=== PATIENT | male | born 2000 | race African-American/Black ===

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

== ENCOUNTER 2024-02-04 13:00 | Emergency (ER) | payer MEDICAID ==
[~2024-02-04] VITALS: Ht 172.7 cm; Wt 53.0 kg
[2024-02-04 13:02] VITALS: O2SAT 99
[2024-02-04 13:09] VITALS: TEMP 98; O2SAT 100
[2024-02-04] MEDS ORDERED: ONDANSETRON HCL 4MG/2ML INJ IV ONE (14:00)
[2024-02-04] MEDS ORDERED: KETOROLAC 30MG/ML VIAL IV ONE (14:00)
[2024-02-04 14:02] LABS: HEMATOCRIT. 48.2 % (42.0-52.0); HEMOGLOBIN. 16.1 g/dL (14.0-18.0); MEAN CORPUSCULAR HEMOGLOBIN 31.6 pg (28.0-32.0); MEAN CORPUSCULAR HGB CONC 33.3 g/dL (31.0-37.0); MEAN CORPUSCULAR VOLUME 94.7 fL (80.0-94.0); MEAN PLATELET VOLUME 8.6 fl (7.4-10.4); PLATELET 294 x1000/uL (130-400); RED BLOOD CELL COUNT 5.09 mill/uL (4.7-6.1); RED CELL DISTRIBUTION WIDTH 15.5 % (11.6-14.6); WHITE BLOOD COUNT 13.1 x1000/uL (4.5-11.0)
[2024-02-04 14:11] LABS: CHLORIDE 106 mEq/L (98-107); POTASSIUM 4.8 mEq/L (3.5-5.1); SODIUM 140 mEq/L (136-145)
[2024-02-04 14:12] LABS: CALCIUM 11.5 mg/dL (8.7-10.4); CARBON DIOXIDE 21 mEq/L (21-32)
[2024-02-04 14:17] LABS: CREATININE 1.4 mg/dL (0.6-1.3); GLUCOSE 159 mg/dL (70-105); UREA NITROGEN BLOOD 25 mg/dL (9-23)
[2024-02-04 14:19] LABS: ALANINE AMINOTRANSFERASE 36 IU/L (10-49); ALBUMIN 5.6 g/dL (3.2-4.8); ASPARTATE AMINOTRANSFERASE 34 IU/L (<34); BILIRUBIN DIRECT 0.4 mg/dL (<=3.0); BILIRUBIN TOTAL 1.4 mg/dL (0.1-1.0); PROTEIN TOTAL 9.4 g/dL (6.0-8.3)
[2024-02-04 14:23] LABS: DIFFERENTIAL COMMENT 1
[2024-02-04 15:40] LABS: PLATELET ESTIMATE NORMAL
[2024-02-04 18:13] VITALS: BP 114/67; PULSE 80; RESP 22
[2024-02-04] MEDS: KETOROLAC 30MG/ML VIAL IV NR (18:13)
[2024-02-04] MEDS: ONDANSETRON HCL 4MG/2ML INJ IV NR (18:13)
[2024-02-04] MEDS: SODIUM CHLORIDE 0.9% 1,000 ML IV ONE (18:14)
[2024-02-04] MEDS: DICYCLOMINE HCL 10MG/ML 2ML VIAL IM STA (19:03)
[2024-02-04] MEDS ORDERED: ONDA-239 PO (20:18)
== END 2024-02-04 20:55 | disposition home or self-care (01) ==
LOC: ER 13:00
DX: F19.90 Other psychoactive substance use, unspecified, uncomplicated (principal); R11.2 Nausea with vomiting, unspecified; J45.909 Unspecified asthma, uncomplicated
CPT/HCPCS: 80076; 80048; 83690; 85025; 36415; 96372; 96374; 96375; 99284; J0500; J1885; J7030; Z7610 ×2